=== PATIENT | female | born 1955 ===

== ENCOUNTER 2018-03-31 11:33 | Outpatient (CLI) | payer OTHER | END 2018-03-31 11:45 | disposition home or self-care (01) | LOC: OFIC 805 11:33 | DX: E04.2 Nontoxic multinodular goiter (principal); R49.0 Dysphonia; R07.0 Pain in throat; K21.9 Gastro-esophageal reflux disease without esophagitis; R05 Cough ==

== ENCOUNTER 2020-03-18 11:49 | Outpatient (CLI) | payer OTHER | END 2020-03-18 15:18 | disposition home or self-care (01) | LOC: SONOGRAMA 11:49 | PROVIDERS: ATTEND Pathology Anatomic Pathology & Clinical Pathology | DX: E04.2 Nontoxic multinodular goiter (principal) ==

== ENCOUNTER 2020-03-28 15:29 | Outpatient (CLI) | payer OTHER | END 2020-03-28 16:30 | disposition home or self-care (01) | LOC: OFIC 805 15:29 | PROVIDERS: ATTEND Otolaryngology | DX: E07.1 Dyshormogenetic goiter (principal); R49.0 Dysphonia; R07.0 Pain in throat; R05 Cough; K21.00 Gastro-esophageal reflux disease with esophagitis, without bleeding; R42 Dizziness and giddiness; H91.8X3 Other specified hearing loss, bilateral ==

== ENCOUNTER 2021-01-24 11:45 | Inpatient (IN) | payer OTHER ==
[~2021-01-24] VITALS: Ht 152.4 cm; Wt 66.7 kg
[2021-01-24] MEDS ORDERED: AVALIDE 300-121 EACH PO (16:14)
== END 2021-01-28 12:06 | disposition home or self-care (01) | DRG 627 ==
LOC: O/R 01-27 10:25 → SURH 01-27 10:25
PROVIDERS: ADMIT Surgery; ATTEND Surgery
PROC: 0GTH0ZZ Resection of Right Thyroid Gland Lobe, Open Approach (ICD-10-PCS; 2021-01-27)
PROC: 0GTG0ZZ Resection of Left Thyroid Gland Lobe, Open Approach (ICD-10-PCS; principal; 2021-01-27 13:00)
DX: E04.2 Nontoxic multinodular goiter (principal)